=== PATIENT | female | born 1950 | race Caucasian/White ===

== ENCOUNTER 2020-05-19 13:40 | Emergency (ER) | payer MEDICARE, OTHER ==
[~2020-05-19] VITALS: Ht 160 cm; Wt 102.1 kg
[2020-05-19] MEDS ORDERED: COZAAR50 MG PO (14:04)
[2020-05-19] MEDS ORDERED: K-TAB ER20 MEQ PO (14:05)
[2020-05-19] MEDS ORDERED: HYDROCHLOROTHIA25 MG PO (14:05)
[2020-05-19] MEDS ORDERED: LIPITOR40 MG PO (14:06)
[2020-05-19] MEDS ORDERED: CYCLOBENZAPRINE5 MG PO (14:06)
[2020-05-19] MEDS ORDERED: OXYCODONE HCL5 MG PO (14:06)
== END 2020-05-19 15:00 | disposition home or self-care (01) ==
LOC: ED 13:40
DX: L25.8 Unspecified contact dermatitis due to other agents (principal); I11.0 Hypertensive heart disease with heart failure; I50.9 Heart failure, unspecified; E78.5 Hyperlipidemia, unspecified; Z88.8 Allergy status to other drugs, medicaments and biological substances; Z79.899 Other long term (current) drug therapy
CPT/HCPCS: 99283